=== PATIENT | male | born 1960 | race Caucasian/White ===

== ENCOUNTER 2019-02-02 23:34 | Inpatient (IN) | payer MEDICARE ==
--- NOTE | 2019-02-03 00:09 | ED Physician Chart ---
ED Chief Complaint/HPI - Patient Information Date Seen:: 02/03/19 Time Seen:: 00:08 Chief Complaint:: Depression History of Present Illness:: 58 yo male with history of GERD, DM, HTN, hyperlipidemia, chronic pain syndrome associated with chronic right leg pain and low back pain, as well as depression , was brought from [facility] to ER for increased depression, isolation, refusal of treatment and oversleep. On arrival, pt requested percocert and norco, then dozed off. Allergies:: Allergies Allergy/AdvReac Type Severity Reaction Status Date / Time No Known Allergies Allergy Verified 02/02/19 23:52 Vitals:: Vital Signs - 8 hr 02/02/19 23:36 Temp 96.8 F HR 97 RR 14 BP 101/56 O2 Sat % 97 ED Review of Systems - Review of Systems General/Constitutional: No fever Skin: No rash Head: No headache Eyes: Acuity change ENT: No nasal drainage Neck: No thyromegaly Cardio Vascular: No chest pain, edema Pulmonary: No SOB GI: No nausea, No vomiting Musculoskeletal: Bone or joint pain, Back pain Psychiatric: Depression ED Past Medical History - Past Medical History Past Medical History: HTN, DM, Dyslipidemia, PUD/GERD, Other (Afib, anemia, chronic right leg pain, low back pain) Social History: Non Smoker, No Alcohol, No Drug Use Surgical History: other (Right tibia fracture) Psychiatricy History: Depression Family Medical History - Family Member Mother History Unknown: Yes ED Physical Exam - Physical Examination General/Constitutional: Awake, Alert Head: Atraumatic Eyes: PERRL, EOMI Other Skin comments:: Right anterior non-healing wound, s/p right tibia fracture surgery ENMT: Nasal exam nl Neck: No nuchal rigidity Respiratory: No Wheeze/Rhonchi/Rales Cardio Vascular: No murmur, gallop, rubs, NL S1 S2 Other Cardio Vascular comments:: IRR GI: No tenderness/rebounding/guarding Other Extremities comments:: Right tibia fracture surgical wound partially healed Neuro/Psych: No focal deficits ED Labs/Radiology/EKG Results - Lab Results Results: Laboratory Last Values WBC 5.5 Th/cmm (4.8-10.8) 02/02/19 00:10 RBC 3.88 Mil/cmm (4.30-5.70) L 02/02/19 00:10 Hgb 9.1 gm/dL (12-16) L 02/02/19 00:10 Hct 29.5 % (41.0-60) L 02/02/19 00:10 MCV 76.1 fl (80-99) L 02/02/19 00:10 MCH 23.5 pg (26.0-30.0) L 02/02/19 00:10 MCHC Differential 30.9 pg (28.0-36.0) 02/02/19 00:10 RDW 14.7 % (11.5-20.0) 02/02/19 00:10 Plt Count 178 Th/cmm (150-400) 02/02/19 00:10 MPV 7.2 fl 02/02/19 00:10 Neutrophils % 67.2 % (40.0-80.0) 02/02/19 00:10 Lymphocytes % 23.5 % (20.0-50.0) 02/02/19 00:10 Monocytes % 8.4 % (2.0-10.0) 02/02/19 00:10 Eosinophils % 0.3 % (0.0-5.0) 02/02/19 00:10 Basophils % 0.6 % (0.0-2.0) 02/02/19 00:10 Sodium 139 mEq/L (136-145) 02/02/19 00:10 Potassium 4.0 mEq/L (3.5-5.1) 02/02/19 00:10 Chloride 95 mEq/L (98-107) L 02/02/19 00:10 Carbon Dioxide 39.0 mEq/L (21.0-31.0) H 02/02/19 00:10 Anion Gap 9.0 (7.0-16.0) 02/02/19 00:10 BUN 28 mg/dL (7-25) H 02/02/19 00:10 Creatinine 1.0 mg/dL (0.7-1.3) 02/02/19 00:10 Est GFR ( Amer) > 60.0 ml/min (>90) 02/02/19 00:10 Est GFR (Non-Af Amer) > 60.0 ml/min 02/02/19 00:10 BUN/Creatinine Ratio 28.0 02/02/19 00:10 Glucose 192 mg/dL (70-105) H 02/02/19 00:10 POC Glucose 174 MG/DL (70 - 105) H 02/03/19 06:14 Calcium 9.0 mg/dL (8.6-10.3) 02/02/19 00:10 Total Bilirubin 0.3 mg/dL (0.3-1.0) 02/02/19 00:10 AST 12 U/L (13-39) L 02/02/19 00:10 ALT 10 U/L (7-52) 02/02/19 00:10 Alkaline Phosphatase 83 U/L (34-104) 02/02/19 00:10 Troponin I 0.01 ng/mL (0.01-0.05) 02/03/19 00:10 B-Natriuretic Peptide 70.0 pg/mL (5.0-100.0) 02/03/19 00:10 Total Protein 6.9 gm/dL (6.0-8.3) 02/02/19 00:10 Albumin 3.6 gm/dL (4.2-5.5) L 02/02/19 00:10 Globulin 3.3 gm/dL 02/02/19 00:10 Albumin/Globulin Ratio 1.1 (1.0-1.8) 02/02/19 00:10 Triglycerides 133 mg/dL (<150) 02/03/19 00:10 Cholesterol 135 mg/dL (<200) 02/03/19 00:10 LDL Cholesterol Direct 69 mg/dL (75-193) L 02/03/19 00:10 HDL Cholesterol 42 mg/dL (23-92) 02/03/19 00:10 TSH 2.01 uIU/ml (0.34-5.60) 02/02/19 00:10 - Radiology Results Results: CXR: chronic interstitial changes, cardiomegaly - EKG Interpretations EKG Time:: 00:39 Rate & Rhythm: 84 bpm, atrial fibrillation Intervals: RBBB Comments:: No ST, T changes ED Assessment - Assessment General Assessment: Atrial fibrillation Anemia, microcytic Chronic pain syndrome Right leg pain Low back pain Opioid dependence Morbid obesity Depression Assessment/Comments:: CBC, CMP, PT/PTT, Trop, BNP, HbA1c CXR, EKG Admit to [facility] for further evaluation and management ED Septic Shock - . Is Septic Shock (SBP<90, OR Lactate>4 mmol\L) present?: No - <6hrs of presentation: Vital Signs: Vital Signs - 8 hr 02/02/19 23:36 Temp 96.8 F HR 97 RR 14 BP 101/56 O2 Sat % 97 ED Reassessment (Disposition) - Reassessment Reassessment Condition:: Improved - Patient Disposition Discharge/Transfer:: Lisseth cortez/in this hosp Admitting Medical Physician:: Donato Hernandez Admitting Psych Physician:: Rick Seymour
[2019-02-03 00:19] LABS: % BASOPHILS 0.6 % (0.0-2.0); % EOSINOPHILS 0.3 % (0.0-5.0); % LYMPHOCYTES 23.5 % (20.0-50.0); % MONOCYTES 8.4 % (2.0-10.0); % NEUTROPHILS 67.2 % (40.0-80.0); HEMATOCRIT 29.5 % (41.0-60); HEMOGLOBIN 9.1 gm/dL (12-16); LYMPHOCYTE ABSOLUTE 1.3 Th/cmm (1.5-3.0); MEAN CELL VOLUME 76.1 fl (80-99); MEAN CORPUSCULAR HEMOGLOBIN 23.5 pg (26.0-30.0); MEAN CORPUSCULAR HGB CONC 30.9 pg (28.0-36.0); MONOCYTE ABSOLUTE 0.5 Th/cmm (0.3-1.0); NEUTROPHILE ABSOLUTE 3.7 Th/cmm (1.8-8.0); PLATELET COUNT 178 Th/cmm (150-400); RED BLOOD COUNT 3.88 Mil/cmm (4.30-5.70); RED CELL DISTRIBUTION WIDTH 14.7 % (11.5-20.0); WHITE BLOOD COUNT 5.5 Th/cmm (4.8-10.8)
[2019-02-03 00:34] LABS: ALB/GLOB RATIO 1.1 (1.0-1.8); ALBUMIN 3.6 gm/dL (4.2-5.5); ALKALINE PHOSPHATASE 83 U/L (34-104); BILIRUBIN,TOTAL 0.3 mg/dL (0.3-1.0); BUN - UREA NITROGEN 28 mg/dL (7-25); CHLORIDE 95 mEq/L (98-107); GFR AFRICAN-AMERICAN > 60.0 ml/min (>90); GFR NON AFRICAN-AMERICAN > 60.0 ml/min; GLUCOSE 192 mg/dL (70-105); SGOT 12 U/L (13-39); SGPT/ALT 10 U/L (7-52); SODIUM SERUM 139 mEq/L (136-145); TOTAL PROTEIN,SERUM 6.9 gm/dL (6.0-8.3)
[2019-02-03 02:03] VITALS: BP 138/83
[2019-02-03] MEDS ORDERED: Acetaminophen 500 MG TAB PO PRN (02:19)
[2019-02-03] MEDS ORDERED: Albuterol/Ipratropium Neb 3 ML AERS HHN PRN ×3 (02:20→10:19)
[2019-02-03] MEDS ORDERED: DIPHENHYDRAMINE HCL 25 MG PO PRN (02:20)
[2019-02-03] MEDS: OXYCODONE HCL PO SCH ×2 (03:27→07:00)
[2019-02-03] MEDS: ACETAMINOPHEN PO SCH ×2 (03:27→07:00)
[2019-02-03 05:44] LABS: CHOLESTEROL 135 mg/dL (<200); HDL -HIGH DENSITY LIPOPROTEIN 42 mg/dL (23-92); TRIGLYCERIDES 133 mg/dL (<150)
[2019-02-03] MEDS: INSULIN LISPRO SLIDING SCALE 100 UNITS/ML UNIT SUBQ SCH ×4 (06:41→20:40)
--- NOTE | 2019-02-03 07:26 | Diagnostic Imaging Report ---
Portable chest x-ray HISTORY: Shortness of breath The heart is enlarged. There is a poor inspiration. Allowing for this factor, no focal prominent processes are seen. No hilar or mediastinal abnormalities. IMPRESSION: 1. Allowing for poor inspiration, no acute focal prominent processes 2. Cardiomegaly
[2019-02-03] MEDS ORDERED: Non-Formulary Item 1 EA (Rivaroxaban [Xarelto] 20 MG) PO SCH (09:00)
[2019-02-03] MEDS ORDERED: INSULIN LISPRO SLIDING SCALE 100 UNITS/ML UNIT SUBQ SCH (09:00)
[2019-02-03] MEDS ORDERED: ALBUTEROL SULFATE IH SCH (09:00)
[2019-02-03] MEDS: Lactulose 10 Gm/15 mL 30mL UDC PO SCH ×2 (09:40→16:45)
[2019-02-03] MEDS: Pantoprazole 40 mg EC Tab PO SCH (09:55)
[2019-02-03] MEDS: APAP/Oxycodone 5/325mg Tab PO PRN ×2 (09:55→17:58)
[2019-02-03] MEDS: Docusate Sodium/Senna Tab PO SCH (09:55)
--- NOTE | 2019-02-03 10:31 | Psychiatric Evaluation ---
DATE OF SERVICE: 02/03/2019 INITIAL EVALUATION AND MENTAL STATUS EXAM AGE: 58. SEX: Male. PHYSICIAN: Dr. Seymour. CHIEF COMPLAINT: Agitation and irritability. HISTORY OF PRESENT ILLNESS: The patient is a 58-year-old male who was transferred from [facility] because of increased depression and agitation. The patient is overweight and diabetic and also has a fracture of his right tibia and has been complaining of severe pain. The patient said that the pain has been severe and he has not been able to handle it. The patient has been restless and has been agitated and has been having difficulty handling staff and followed their instruction in the [facility]. He was transferred to the hospital. PAST PSYCHIATRIC HISTORY: The patient has a history of depression. PAST MEDICAL HISTORY: The patient has a history of hypertension, diabetes mellitus, congestive heart failure, gastroesophageal reflux disease and fracture of right tibia. SOCIAL HISTORY: The patient lives in a group home. No known alcohol or drug use. ALLERGIES: No known allergies. MENTAL STATUS EXAMINATION: The patient appears older than his stated age. Overweight. Anxious. Easily agitated. Thought processes are circumstantial, but no flight of ideas. The patient denied any hallucinations or delusions. The patient denies any suicidal or homicidal ideations. The patient is alert and oriented to time, place, person, and situation. Intact immediate, recent and remote memories. Fair insight. Judgment is questionable. Seems to be of average intelligence based on his verbal ability. ASSESSMENT: PRIMARY DIAGNOSIS: Major depression, severe, recurrent, without psychotic features. TREATMENT PLAN: We will monitor the patient's behavior and condition closely. We will start the patient on Seroquel and also we will change Lexapro to Cymbalta for better help with the pain. Also, we will work on his ineffective coping. ESTIMATED LENGTH OF STAY: 5-7 days. PATIENT'S STRENGTHS AND WEAKNESSES: The patient's strength is not clear at this time. Weakness is his ineffective coping. AFTER DISCHARGE PLAN: Outpatient treatment and followup will continue as an outpatient. CRITERIA FOR DISCHARGE: The patient will not be depressed and will stabilize psychotropic medications and will establish outpatient treatment plans. Also, the patient will be able to return to [facility]. [facility]# [id number]
[2019-02-03] MEDS ORDERED: Albuterol/Ipratropium Neb 3 ML AERS HHN SCH (11:00)
--- NOTE | 2019-02-03 11:34 | History & Physical ---
ADMIT DATE: 02/03/2019 CHIEF COMPLAINT: Depression. HISTORY OF PRESENT ILLNESS: A 58-year-old male who is a [facility] resident, admitted to the Geropsych Unit due to depression. The patient is also noted with right lower extremity multiple open wounds. PAST MEDICAL HISTORY: Hypertension, diabetes, dyslipidemia, GERD, AFib, anemia, chronic leg pain, low back pain. PAST SURGICAL HISTORY: Right tibia fracture. FAMILY HISTORY: Noncontributory. SOCIAL HISTORY: The patient is a [facility] resident. REVIEW OF SYSTEMS: GENERAL: Denies any fever or chills. CARDIOVASCULAR: Denies chest pain. RESPIRATORY: Denies shortness of breath. GASTROINTESTINAL: Denies nausea, vomiting or abdominal pain. GENITOURINARY: Denies increased frequency or dysuria. NEUROLOGIC: No headaches, seizures or syncope. All systems reviewed and negative. PHYSICAL EXAMINATION: GENERAL: The patient is an obese male. Awake, alert, in no apparent distress. VITAL SIGNS: Temperature 97.6, heart rate 105, blood pressure 134/81, O2 of 96%. HEENT: Head; normocephalic, atraumatic. NECK: Supple. No mass. LUNGS: Clear bilaterally. HEART: Regular rhythm. ABDOMEN: Soft, nontender. SKIN: The patient's right lower extremity noted with diabetic wounds. LABORATORY DATA: WBC 5.5, H and H 9.1 and 29.5, platelet of 178. Sodium 139, potassium 4.0, chloride 95, BUN 20, creatinine 1.0. ASSESSMENT: Depression, vasomotor nephropathy, type 2 diabetes, right lower extremity diabetic wound, hypertension, dyslipidemia, gastroesophageal reflux disease, history of atrial fibrillation, history of anemia, chronic right leg pain and chronic low back pain. PLAN: We will start the patient on vitamin C, zinc sulfate for wound healing. We will get wound culture as well as wound consult on the case. Nursing staff to do wound care q.12. We will continue to monitor this patient. JOB# [id number]
[2019-02-03] MEDS ORDERED: OXYCODONE HCL PO SCH (12:00)
[2019-02-03] MEDS ORDERED: ACETAMINOPHEN PO SCH (12:00)
[2019-02-03] MEDS ORDERED: [UNRECOGNIZED DRUG - OTHER] PO SCH (12:00)
[2019-02-03] MEDS: Albuterol/Ipratropium Neb 3 ML AERS HHN PRN (14:14)
[2019-02-03] MEDS: Eucerin Cream 16 oz Jar TP SCH (16:59)
[2019-02-03] MEDS: Insulin Glargine 100 units/ml 10ml Vial SUBQ SCH (20:41)
[2019-02-03] MEDS: Atorvastatin Calcium 10 MG TAB PO SCH (20:44)
[2019-02-03] MEDS ORDERED: Non-Formulary Item 1 EA (Atorvastatin Calcium [Lipitor] 20 MG) PO SCH (21:00)
[2019-02-03] MEDS ORDERED: Non-Formulary Item 1 EA (Melatonin [Melatonin] 3 MG) PO SCH (21:00)
[2019-02-04] MEDS: APAP/Oxycodone 5/325mg Tab PO PRN ×4 (00:23→21:37)
[2019-02-04] MEDS: INSULIN LISPRO SLIDING SCALE 100 UNITS/ML UNIT SUBQ SCH ×4 (06:39→21:38)
[2019-02-04] MEDS: Lactulose 10 Gm/15 mL 30mL UDC PO SCH ×2 (08:45→16:20)
[2019-02-04] MEDS: Pantoprazole 40 mg EC Tab PO SCH (08:46)
[2019-02-04] MEDS: Docusate Sodium/Senna Tab PO SCH (08:46)
[2019-02-04] MEDS: Venelex 60gm Tube TP SCH (08:47)
[2019-02-04] MEDS: Eucerin Cream 16 oz Jar TP SCH ×2 (08:48→16:21)
[2019-02-04] MEDS: Albuterol/Ipratropium Neb 3 ML AERS HHN PRN (11:51)
--- NOTE | 2019-02-04 18:19 | Internal Medicine Prog Note ---
Internal Medicine Subjective - Subjective Service Date: 02/04/19 Patient seen and examined:: with staff Patient is:: awake Per staff patient has:: tolerating meds Internal Medicine Objective - Results Result Diagrams: 02/02/19 00:10 02/02/19 00:10 Recent Labs: Laboratory Last Values WBC 5.5 Th/cmm (4.8-10.8) 02/02/19 00:10 RBC 3.88 Mil/cmm (4.30-5.70) L 02/02/19 00:10 Hgb 9.1 gm/dL (12-16) L 02/02/19 00:10 Hct 29.5 % (41.0-60) L 02/02/19 00:10 MCV 76.1 fl (80-99) L 02/02/19 00:10 MCH 23.5 pg (26.0-30.0) L 02/02/19 00:10 MCHC Differential 30.9 pg (28.0-36.0) 02/02/19 00:10 RDW 14.7 % (11.5-20.0) 02/02/19 00:10 Plt Count 178 Th/cmm (150-400) 02/02/19 00:10 MPV 7.2 fl 02/02/19 00:10 Neutrophils % 67.2 % (40.0-80.0) 02/02/19 00:10 Lymphocytes % 23.5 % (20.0-50.0) 02/02/19 00:10 Monocytes % 8.4 % (2.0-10.0) 02/02/19 00:10 Eosinophils % 0.3 % (0.0-5.0) 02/02/19 00:10 Basophils % 0.6 % (0.0-2.0) 02/02/19 00:10 Sodium 139 mEq/L (136-145) 02/02/19 00:10 Potassium 4.0 mEq/L (3.5-5.1) 02/02/19 00:10 Chloride 95 mEq/L (98-107) L 02/02/19 00:10 Carbon Dioxide 39.0 mEq/L (21.0-31.0) H 02/02/19 00:10 Anion Gap 9.0 (7.0-16.0) 02/02/19 00:10 BUN 28 mg/dL (7-25) H 02/02/19 00:10 Creatinine 1.0 mg/dL (0.7-1.3) 02/02/19 00:10 Est GFR ( Amer) > 60.0 ml/min (>90) 02/02/19 00:10 Est GFR (Non-Af Amer) > 60.0 ml/min 02/02/19 00:10 BUN/Creatinine Ratio 28.0 02/02/19 00:10 Glucose 192 mg/dL (70-105) H 02/02/19 00:10 POC Glucose 174 MG/DL (70 - 105) H 02/03/19 06:14 Calcium 9.0 mg/dL (8.6-10.3) 02/02/19 00:10 Total Bilirubin 0.3 mg/dL (0.3-1.0) 02/02/19 00:10 AST 12 U/L (13-39) L 02/02/19 00:10 ALT 10 U/L (7-52) 02/02/19 00:10 Alkaline Phosphatase 83 U/L (34-104) 02/02/19 00:10 Troponin I 0.01 ng/mL (0.01-0.05) 02/03/19 00:10 B-Natriuretic Peptide 70.0 pg/mL (5.0-100.0) 02/03/19 00:10 Total Protein 6.9 gm/dL (6.0-8.3) 02/02/19 00:10 Albumin 3.6 gm/dL (4.2-5.5) L 02/02/19 00:10 Globulin 3.3 gm/dL 02/02/19 00:10 Albumin/Globulin Ratio 1.1 (1.0-1.8) 02/02/19 00:10 Triglycerides 133 mg/dL (<150) 02/03/19 00:10 Cholesterol 135 mg/dL (<200) 02/03/19 00:10 LDL Cholesterol Direct 69 mg/dL (75-193) L 02/03/19 00:10 HDL Cholesterol 42 mg/dL (23-92) 02/03/19 00:10 TSH 2.01 uIU/ml (0.34-5.60) 02/02/19 00:10 - Physical Exam Vitals and I&O: Vital Signs Temp 98.7 F 02/04/19 05:55 Pulse 86 02/04/19 11:51 Resp 18 02/04/19 11:51 BP 123/74 02/04/19 16:20 Pulse Ox 96 02/04/19 11:51 Intake & Output 02/03/19 02/04/19 02/04/19 18:59 06:59 18:59 Intake Total 1200 Output Total 1800 900 Balance -600 -900 Intake: Oral 1200 Output: Urine 1800 900 Other: # Bowel Movements 1 0 Active Medications: Current Medications Acetaminophen (Tylenol Extra Strength) 1,000 mg PO Q4HR PRN PRN Reason: BREAKTHROUGH PAIN Stop: 04/04/19 02:18 Albuterol/Ipratropium (Duoneb Neb) 3 ml HHN Q2H PRN PRN Reason: Shortness of Breath or Wheeze Stop: 04/04/19 06:18 Albuterol/Ipratropium (Duoneb Neb) 3 ml HHN Q4HRT PRN PRN Reason: sob Stop: 04/04/19 10:59 Last Admin: 02/04/19 11:51 Dose: 3 ml Ascorbic Acid (Vitamin C) 500 mg PO DAILY [facility] Stop: 04/05/19 08:59 Last Admin: 02/04/19 08:45 Dose: 500 mg Atorvastatin Calcium (Lipitor) 20 mg PO HS [facility]; Protocol Stop: 04/04/19 20:59 Last Admin: 02/03/19 20:44 Dose: 20 mg Bisacodyl (Dulcolax 10 Mg Supp) 10 mg RC DAILY PRN PRN Reason: Constipation Stop: 04/04/19 02:19 Calcium Carbonate (Os-Guillaume) 500 mg PO Q6HR PRN PRN Reason: Indigestion Stop: 04/04/19 02:19 [place] Oil/[place] Balsam/Trypsin (Venelex) 1 appl TP DAILY [facility] Stop: 04/05/19 08:59 Last Admin: 02/04/19 08:47 Dose: 1 appl Diphenhydramine HCl (Benadryl) 25 mg PO Q6HR PRN PRN Reason: Itching Stop: 04/04/19 05:26 Duloxetine HCl (Cymbalta) 30 mg PO BID [facility]; Protocol Stop: 04/04/19 08:59 Last Admin: 02/04/19 16:20 Dose: 30 mg Furosemide (Lasix) 40 mg PO BID [facility] Stop: 04/04/19 08:59 Last Admin: 02/04/19 16:20 Dose: 40 mg Insulin Glargine (Lantus Insulin) 10 units SUBQ HS [facility] Stop: 04/04/19 20:59 Last Admin: 02/03/19 20:41 Dose: 10 units Insulin Human Lispro (Humalog Insulin Sliding Scale) 0 units SUBQ ACHS [facility]; Protocol Stop: 04/04/19 07:29 Last Admin: 02/04/19 17:37 Dose: 1 units Lactulose (Cephulac) 20 gm PO BID [facility] Stop: 04/04/19 08:59 Last Admin: 02/04/19 16:20 Dose: 20 gm Lorazepam (Ativan) 0.5 mg PO Q4HR PRN; Protocol PRN Reason: Anxiety Stop: 03/05/19 02:27 Metoprolol Tartrate (Lopressor) 25 mg PO DAILY [facility] Stop: 04/04/19 08:59 Last Admin: 02/04/19 08:46 Dose: 25 mg Multi-Ingredient Cream (Eucerin Cream) 1 appl TP BID [facility] Stop: 04/04/19 16:59 Last Admin: 02/04/19 16:21 Dose: 1 appl Oxycodone/Acetaminophen (Percocet 5/325mg Oral Tab) 2 tab PO Q6H PRN PRN Reason: pain Stop: 04/04/19 09:27 Last Admin: 02/04/19 13:15 Dose: 2 tab Pantoprazole Sodium (Protonix) 40 mg PO DAILY [facility] Stop: 04/04/19 08:59 Last Admin: 02/04/19 08:46 Dose: 40 mg Pregabalin (Lyrica) 75 mg PO TID [facility] Stop: 04/04/19 08:59 Last Admin: 02/04/19 13:15 Dose: 75 mg Quetiapine Fumarate (Seroquel) 25 mg PO BID [facility]; Protocol Stop: 04/04/19 08:59 Last Admin: 02/04/19 16:20 Dose: 25 mg Rivaroxaban (Xarelto) 20 mg PO DAILY [facility] Stop: 04/04/19 08:59 Last Admin: 02/04/19 08:46 Dose: 20 mg Sennosides (Senna Plus 50 Mg-8.6 Mg) 1 tab PO DAILY [facility] Stop: 04/04/19 08:59 Last Admin: 02/04/19 08:46 Dose: 1 tab Simethicone (Mylicon) 80 mg PO Q6HR PRN PRN Reason: Gas Stop: 04/04/19 02:21 Last Admin: 02/03/19 09:52 Dose: 80 mg Thiamine HCl (Vitamin B1) 100 mg PO DAILY [facility] Stop: 04/04/19 08:59 Last Admin: 02/04/19 08:47 Dose: 100 mg Zinc Sulfate (Zinc Sulfate) 220 mg PO DAILY [facility] Stop: 04/05/19 08:59 Last Admin: 02/04/19 08:45 Dose: 220 mg Zolpidem Tartrate (Ambien) 5 mg PO HS PRN PRN Reason: Insomnia Stop: 04/04/19 02:27 Last Admin: 02/03/19 20:44 Dose: 5 mg General: weak, alert HEENT: NC/AT, PERRLA Neck: Supple Lungs: CTAB Cardiovascular: RRR, Normal S1, Normal S2 Abdomen: soft, non-tender, non-distended, positive bowel sound Extremities: other (multiple diabetic ulcer right lower extremity) Internal Medicine Assmt/Plan - Assessment Assessment: ASSESSMENT: Depression, vasomotor nephropathy, type 2 diabetes, right lower extremity diabetic wound, hypertension, dyslipidemia, gastroesophageal reflux disease, history of atrial fibrillation, history of anemia, chronic right leg pain and chronic low back pain. - Plan Plan: PLAN: We will start the patient on vitamin C, zinc sulfate for wound healing. We will get wound culture as well as wound consult on the case. Nursing staff to do wound care q.12. We will continue to monitor this patient.
[2019-02-04] MEDS: Atorvastatin Calcium 10 MG TAB PO SCH (21:37)
[2019-02-04] MEDS: Insulin Glargine 100 units/ml 10ml Vial SUBQ SCH (21:38)
[2019-02-05] MEDS: INSULIN LISPRO SLIDING SCALE 100 UNITS/ML UNIT SUBQ SCH ×4 (06:33→20:38)
[2019-02-05] MEDS: Lactulose 10 Gm/15 mL 30mL UDC PO SCH ×2 (08:50→16:17)
[2019-02-05] MEDS: Docusate Sodium/Senna Tab PO SCH (08:50)
[2019-02-05] MEDS: Pantoprazole 40 mg EC Tab PO SCH (08:51)
[2019-02-05] MEDS: APAP/Oxycodone 5/325mg Tab PO PRN ×2 (08:52→16:17)
[2019-02-05] MEDS: Venelex 60gm Tube TP SCH (08:53)
[2019-02-05] MEDS: Eucerin Cream 16 oz Jar TP SCH ×2 (08:53→17:05)
[2019-02-05] MEDS: Albuterol/Ipratropium Neb 3 ML AERS HHN PRN (09:36)
--- NOTE | 2019-02-05 13:48 | Internal Medicine Prog Note ---
Internal Medicine Subjective - Subjective Service Date: 02/05/19 Patient seen and examined:: with staff Patient is:: awake, verbal, other (Depression.) Patient Complaints of:: other (Right lower extremity multiple open wounds.) Per staff patient has:: no adverse event, no episodes of fall, tolerating meds Internal Medicine Objective - Results Result Diagrams: 02/02/19 00:10 02/02/19 00:10 Recent Labs: Laboratory Last Values WBC 5.5 Th/cmm (4.8-10.8) 02/02/19 00:10 RBC 3.88 Mil/cmm (4.30-5.70) L 02/02/19 00:10 Hgb 9.1 gm/dL (12-16) L 02/02/19 00:10 Hct 29.5 % (41.0-60) L 02/02/19 00:10 MCV 76.1 fl (80-99) L 02/02/19 00:10 MCH 23.5 pg (26.0-30.0) L 02/02/19 00:10 MCHC Differential 30.9 pg (28.0-36.0) 02/02/19 00:10 RDW 14.7 % (11.5-20.0) 02/02/19 00:10 Plt Count 178 Th/cmm (150-400) 02/02/19 00:10 MPV 7.2 fl 02/02/19 00:10 Neutrophils % 67.2 % (40.0-80.0) 02/02/19 00:10 Lymphocytes % 23.5 % (20.0-50.0) 02/02/19 00:10 Monocytes % 8.4 % (2.0-10.0) 02/02/19 00:10 Eosinophils % 0.3 % (0.0-5.0) 02/02/19 00:10 Basophils % 0.6 % (0.0-2.0) 02/02/19 00:10 Sodium 139 mEq/L (136-145) 02/02/19 00:10 Potassium 4.0 mEq/L (3.5-5.1) 02/02/19 00:10 Chloride 95 mEq/L (98-107) L 02/02/19 00:10 Carbon Dioxide 39.0 mEq/L (21.0-31.0) H 02/02/19 00:10 Anion Gap 9.0 (7.0-16.0) 02/02/19 00:10 BUN 28 mg/dL (7-25) H 02/02/19 00:10 Creatinine 1.0 mg/dL (0.7-1.3) 02/02/19 00:10 Est GFR ( Amer) > 60.0 ml/min (>90) 02/02/19 00:10 Est GFR (Non-Af Amer) > 60.0 ml/min 02/02/19 00:10 BUN/Creatinine Ratio 28.0 02/02/19 00:10 Glucose 192 mg/dL (70-105) H 02/02/19 00:10 POC Glucose 174 MG/DL (70 - 105) H 02/03/19 06:14 Calcium 9.0 mg/dL (8.6-10.3) 02/02/19 00:10 Total Bilirubin 0.3 mg/dL (0.3-1.0) 02/02/19 00:10 AST 12 U/L (13-39) L 02/02/19 00:10 ALT 10 U/L (7-52) 02/02/19 00:10 Alkaline Phosphatase 83 U/L (34-104) 02/02/19 00:10 Troponin I 0.01 ng/mL (0.01-0.05) 02/03/19 00:10 B-Natriuretic Peptide 70.0 pg/mL (5.0-100.0) 02/03/19 00:10 Total Protein 6.9 gm/dL (6.0-8.3) 02/02/19 00:10 Albumin 3.6 gm/dL (4.2-5.5) L 02/02/19 00:10 Globulin 3.3 gm/dL 02/02/19 00:10 Albumin/Globulin Ratio 1.1 (1.0-1.8) 02/02/19 00:10 Triglycerides 133 mg/dL (<150) 02/03/19 00:10 Cholesterol 135 mg/dL (<200) 02/03/19 00:10 LDL Cholesterol Direct 69 mg/dL (75-193) L 02/03/19 00:10 HDL Cholesterol 42 mg/dL (23-92) 02/03/19 00:10 TSH 2.01 uIU/ml (0.34-5.60) 02/02/19 00:10 - Physical Exam Vitals and I&O: Vital Signs Temp 97.8 F 02/05/19 06:09 Pulse 96 02/05/19 09:36 Resp 20 02/05/19 09:36 BP 132/76 02/05/19 08:52 Pulse Ox 95 02/05/19 09:36 Intake & Output 02/04/19 02/05/19 02/05/19 18:59 06:59 18:59 Intake Total 120 Balance 120 Intake: Oral 120 Other: # Voids 1,600 Active Medications: Current Medications Acetaminophen (Tylenol Extra Strength) 1,000 mg PO Q4HR PRN PRN Reason: BREAKTHROUGH PAIN Stop: 04/04/19 02:18 Albuterol/Ipratropium (Duoneb Neb) 3 ml HHN Q2H PRN PRN Reason: Shortness of Breath or Wheeze Stop: 04/04/19 06:18 Albuterol/Ipratropium (Duoneb Neb) 3 ml HHN Q4HRT PRN PRN Reason: sob Stop: 04/04/19 10:59 Last Admin: 02/05/19 09:36 Dose: 3 ml Ascorbic Acid (Vitamin C) 500 mg PO DAILY [facility] Stop: 04/05/19 08:59 Last Admin: 02/05/19 08:51 Dose: 500 mg Atorvastatin Calcium (Lipitor) 20 mg PO HS [facility]; Protocol Stop: 04/04/19 20:59 Last Admin: 02/04/19 21:37 Dose: 20 mg Bisacodyl (Dulcolax 10 Mg Supp) 10 mg RC DAILY PRN PRN Reason: Constipation Stop: 04/04/19 02:19 Calcium Carbonate (Os-Guillaume) 500 mg PO Q6HR PRN PRN Reason: Indigestion Stop: 04/04/19 02:19 [place] Oil/[place] Balsam/Trypsin (Venelex) 1 appl TP DAILY [facility] Stop: 04/05/19 08:59 Last Admin: 02/05/19 08:53 Dose: 1 appl Diphenhydramine HCl (Benadryl) 25 mg PO Q6HR PRN PRN Reason: Itching Stop: 04/04/19 05:26 Duloxetine HCl (Cymbalta) 60 mg PO BID [facility]; Protocol Stop: 04/06/19 08:59 Last Admin: 02/05/19 08:54 Dose: Not Given Furosemide (Lasix) 40 mg PO BID [facility] Stop: 04/04/19 08:59 Last Admin: 02/05/19 08:51 Dose: 40 mg Insulin Glargine (Lantus Insulin) 10 units SUBQ HS [facility] Stop: 04/04/19 20:59 Last Admin: 02/04/19 21:38 Dose: 10 units Insulin Human Lispro (Humalog Insulin Sliding Scale) 0 units SUBQ ACHS [facility]; Protocol Stop: 04/04/19 07:29 Last Admin: 02/05/19 11:31 Dose: Not Given Lactulose (Cephulac) 20 gm PO BID [facility] Stop: 04/04/19 08:59 Last Admin: 02/05/19 08:50 Dose: 20 gm Lorazepam (Ativan) 0.5 mg PO Q4HR PRN; Protocol PRN Reason: Anxiety Stop: 03/05/19 02:27 Metoprolol Tartrate (Lopressor) 25 mg PO DAILY [facility] Stop: 04/04/19 08:59 Last Admin: 02/05/19 08:52 Dose: 25 mg Multi-Ingredient Cream (Eucerin Cream) 1 appl TP BID [facility] Stop: 04/04/19 16:59 Last Admin: 02/05/19 08:53 Dose: 1 appl Oxycodone/Acetaminophen (Percocet 5/325mg Oral Tab) 2 tab PO Q6H PRN PRN Reason: pain Stop: 04/04/19 09:27 Last Admin: 02/05/19 08:52 Dose: 2 tab Pantoprazole Sodium (Protonix) 40 mg PO DAILY [facility] Stop: 04/04/19 08:59 Last Admin: 02/05/19 08:51 Dose: 40 mg Pregabalin (Lyrica) 75 mg PO TID [facility] Stop: 04/04/19 08:59 Last Admin: 02/05/19 13:04 Dose: 75 mg Quetiapine Fumarate (Seroquel) 25 mg PO BID [facility]; Protocol Stop: 04/04/19 08:59 Last Admin: 02/05/19 08:51 Dose: 25 mg Rivaroxaban (Xarelto) 20 mg PO DAILY [facility] Stop: 04/04/19 08:59 Last Admin: 02/05/19 08:50 Dose: 20 mg Sennosides (Senna Plus 50 Mg-8.6 Mg) 1 tab PO DAILY [facility] Stop: 04/04/19 08:59 Last Admin: 02/05/19 08:50 Dose: 1 tab Simethicone (Mylicon) 80 mg PO Q6HR PRN PRN Reason: Gas Stop: 04/04/19 02:21 Last Admin: 02/05/19 11:00 Dose: 80 mg Thiamine HCl (Vitamin B1) 100 mg PO DAILY [facility] Stop: 04/04/19 08:59 Last Admin: 02/05/19 08:53 Dose: 100 mg Zinc Sulfate (Zinc Sulfate) 220 mg PO DAILY [facility] Stop: 04/05/19 08:59 Last Admin: 02/05/19 08:51 Dose: 220 mg Zolpidem Tartrate (Ambien) 5 mg PO HS PRN PRN Reason: Insomnia Stop: 04/04/19 02:27 Last Admin: 02/03/19 20:44 Dose: 5 mg Physical Exam: 58 y/o male patient was admitted due to Depression and has right lower extremity multiple open wounds. General: weak, alert HEENT: NC/AT, PERRLA Neck: Supple Lungs: CTAB Cardiovascular: RRR, Normal S1, Normal S2 Abdomen: soft, non-tender, non-distended, positive bowel sound Extremities: other (multiple diabetic ulcer right lower extremity) Neurological: no change Internal Medicine Assmt/Plan - Assessment Assessment: Depression. Multiple open wounds of Right lower extremity. Hypertension. Diabetes. History of Dyslipidemia. History of GERD. History of Afib. History of Anemia. History of Chronic leg pain. History of Severe lower back pain. - Plan Plan: Continuation of care. Monitor Labs,Monitor Hemoglobin levels. Continue present meds as directed. Monitor vitals, continue B/P meds. Accu-check daily, Continue DM meds as directed. Monitor Diet/Nutritional support. Psych management per Psych. Local skin care and wound care prn. Pain Management. Physical therapy. Occupational therapy. Safety precaution. Supportive care. Fall precaution, frequent nursing rounds, and as needed restraints to prevent fall. Continue collaborating with consulting specialists, case management and nursing team. Will Monitor patient and continue current treatment plan as ordered. Nutritional Asmnt/Malnutr-PDOC - Dietary Evaluation Malnutrition Findings (Please click <Entered> for more info): see orders.
[2019-02-05] MEDS: Insulin Glargine 100 units/ml 10ml Vial SUBQ SCH (20:55)
[2019-02-05] MEDS: Atorvastatin Calcium 10 MG TAB PO SCH (21:08)
[2019-02-06] MEDS: APAP/Oxycodone 5/325mg Tab PO PRN (04:39)
[2019-02-06] MEDS: INSULIN LISPRO SLIDING SCALE 100 UNITS/ML UNIT SUBQ SCH ×2 (06:37→12:00)
[2019-02-06] MEDS: Lactulose 10 Gm/15 mL 30mL UDC PO SCH (08:08)
[2019-02-06] MEDS: Docusate Sodium/Senna Tab PO SCH (08:08)
[2019-02-06] MEDS: Pantoprazole 40 mg EC Tab PO SCH (08:09)
[2019-02-06] MEDS: Eucerin Cream 16 oz Jar TP SCH (08:11)
[2019-02-06] MEDS: Venelex 60gm Tube TP SCH (08:11)
--- NOTE | 2019-02-06 16:43 | Progress Notes ---
DATE: 02/04/2019 SUBJECTIVE: Chart reviewed and the patient interviewed. Also discussed the patient's condition with the staff and reviewed records and labs. The patient is still angry and withdrawn and in irritable mood. The patient also still wants to be left alone. The patient also is still feeling hopeless, especially with his heavy weight. Otherwise, the patient is compliant with taking medications and no side effects of medications. ASSESSMENT: The patient is still agitated and is still in irritable mood. TREATMENT PLAN: Continue monitoring his behavior and his condition closely. Also, continue adjusting psychotropic medications and working on behavioral modification. JOB# [id number]
--- NOTE | 2019-02-06 16:43 | Progress Notes ---
DATE: 02/05/2019 SUBJECTIVE: Chart was reviewed and the patient interviewed. Also discussed the patient's condition with the staff and reviewed records and labs. The patient still in a depressed mood. The patient also is interacting minimally with others. The patient also seems less agitated, but seems to be more depressed. The patient also is complaining of severe pain. Otherwise, the patient has continued to comply with taking his medications, there were no side effects or complications. ASSESSMENT: The patient is less agitated but more depressed and is still complaining of increased pain. TREATMENT PLAN: Continue to monitor his behavior and his condition. Also, we will increase Cymbalta to 60 mg twice a day. Also, we will continue Seroquel 25 mg twice a day and will continue to follow up. [facility]# [id number]
--- NOTE | 2019-02-06 22:54 | Progress Notes ---
DATE: 02/06/2019 SUBJECTIVE: The patient was seen in the dining area. The patient appears to be guarded, irritable, easily gets frustrated. Otherwise, the patient appears to be in no acute distress. OBJECTIVE: VITAL SIGNS: Temperature 98.3, heart rate 99, blood pressure 109/74, respirations 18, 94% on 2 liters via nasal cannula. HEENT: Head is atraumatic and normocephalic. Eyes: Bilateral conjunctivae are clear. Bilateral pupils are equally round and reactive. NECK: Supple. No JVD. CARDIOVASCULAR: S1, S2, without murmur. PULMONARY: Decreased breath sounds. GASTROINTESTINAL: Soft and nontender without guarding. Positive bowel sounds. MUSCULOSKELETAL: No clubbing. No cyanosis noted. ASSESSMENT: 1. Major depression disorder. 2. Obesity. 3. Neuropathy. 4. Diabetes. 5. Hypertension. 6. Hyperlipidemia. 7. Gastroesophageal reflux disease. PLAN: We will continue to keep the patient to inpatient psychiatric unit. We will follow up with a psychiatrist and monitor the patient's condition and behavior. Treatment plans were discussed with the patient's nurse. Treatment plans were discussed with Dr. Hernandez. JOB# [id number]
--- NOTE | 2019-02-07 03:17 | Progress Notes ---
DATE: 02/06/2019 SUBJECTIVE: A 58-year-old male transferred from [facility], increased depression, agitation, also noted to have severe pain. The patient has really no idea why he is here. He states he is here for "physical therapy." When I asked him where he is going to go ____, he states "I am going to go home with a buffalo room." The patient apparently has been restless, agitated, yelling, screaming episodes. Staff noting that he has been confused at times, irritable, but generally redirectable. He also ____ wants help. Still gets agitated, impulsive, somewhat unpredictable. Medications were noted. ASSESSMENT AND PLAN: The patient remains unruly, not safe for a lower level of care. Currently on Seroquel dosing. We will continue to monitor, redirect, work on orientation. JOB# [id number]
--- NOTE | 2019-02-08 17:39 | Discharge Summary ---
DATE OF DISCHARGE: 02/06/2019 FINAL DIAGNOSES: Depressive mood disorder, severe, with psychotic features. REASON FOR HOSPITALIZATION: The patient was admitted to the hospital because of increased agitation and irritability in the [facility], [place] he is living and he was having difficulty following any of staff directions and was severely depressed. HOSPITAL COURSE: The patient continued to be severely depressed. The patient also was feeling hopeless. The patient also was complaining of severe pain. The patient also needed antibiotics and Dr. Hernandez transferred the patient to medical floor in order to receive IV antibiotics. The patient was not suicidal or homicidal while in the Geropsych Unit. The patient was given Cymbalta that was increased to 60 mg twice a day and Seroquel 25 mg twice a day. Physical exam of the patient was the patient was obese and the patient needed IV antibiotics and he was transferred to the medical floor. EXPECTED OUTCOME AFTER DISCHARGE: Based on his course of treatment in the med-surg unit. JOB# [id number]
== END 2019-02-06 16:30 | disposition short-term general hospital (02) | DRG 885 ==
LOC: ER 23:34 → GERO2 02-03 01:10 → GERO 02-05 07:00
PROVIDERS: ADMIT Psychiatry & Neurology Psychiatry; ATTEND Psychiatry & Neurology Psychiatry
DX: F32.3 Major depressive disorder, single episode, severe with psychotic features (principal); N17.0 Acute kidney failure with tubular necrosis; I11.0 Hypertensive heart disease with heart failure; F11.20 Opioid dependence, uncomplicated; Z68.43 Body mass index [BMI] 50.0-59.9, adult; K21.9 Gastro-esophageal reflux disease without esophagitis; E78.5 Hyperlipidemia, unspecified; G89.4 Chronic pain syndrome; I48.91 Unspecified atrial fibrillation; D50.9 Iron deficiency anemia, unspecified; E66.01 Morbid (severe) obesity due to excess calories; M54.5 Low back pain; I50.9 Heart failure, unspecified; E11.40 Type 2 diabetes mellitus with diabetic neuropathy, unspecified
CPT/HCPCS: 36415-UA; 71045-TC; 80053-TC; 80061-TC; 82948-90; 83036-90; 83880-TC; 84443-TC; 84484-TC; 85025-TC; 86592-TC; 93005; 94640; 94760; J1815; Z7610